=== PATIENT | male | born 1945 | race Hispanic/Latino ===

== ENCOUNTER 2018-01-14 09:21 | Emergency (ER) | payer OTHER ==
--- OUTSIDE RECORDS SUMMARY | 2018-01-14 09:24 | XMS REPORT ---
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 62858902686 5 MG Orally Once Active 1 tablet a day Vimovo [facility] 93844450867 500-20 MG Orally Active 1 tablet Twice a day before meals Cozaar [facility] 14169820099 100 MG Orally Active 1 tablet Once a day Results No Known Results Summary Purpose eClinicalWorks Submission
[2018-01-14 10:55] LABS: Absolute Lymphocytes (CBC) 1.3 K/uL (0.7-4.9); Absolute Monocytes 0.9 K/uL (0.1-1.3); Absolute Neutrophil 4.2 K/uL (1.8-8.0); Basophils % 0.5 % (0-1.3); Eosinophils % 1.4 % (0-4.4); Hematocrit 38.6 % (39.6-49.0); Lymphocytes % 19.6 % (15.3-44.8); MCH 32.7 pg (27.0-35.0); MCV 92.7 fL (80-100); MPV 8.6 fL (7.6-11.3); Monocytes % 13.7 % (3.3-12.3); RBC Red Blood Cell Count 4.16 M/uL (4.33-5.43)
[2018-01-14 11:00] LABS: Protime INR 1.12
[2018-01-14 11:17] LABS: ALT/SGPT 21 U/L (12-78); AST/SGOT 12 U/L (15-37); Albumin 3.6 g/dL (3.4-5.0); Alkaline Phosphatase 94 U/L (45-117); BUN Blood Urea Nitrogen 11 mg/dL (7-18); Bicarbonate 29 mmol/L (21-32); Bilirubin Direct 0.1 mg/dL (0-0.2); Bilirubin Total 0.5 mg/dL (0.2-1.0); CKMB Creatine Kinase MB < 1.0 ng/mL (0.3-3.6); Creatine Phosphokinase 101 U/L (39-308); Glucose Level 120 mg/dL (74-106); Magnesium 2.5 mg/dL (1.8-2.4); NT PRO-BNP 142 pg/mL (<125); Potassium 3.4 mmol/L (3.5-5.1); Protein, Total 7.9 g/dL (6.4-8.2); Sodium Level 140 mmol/L (136-145)
[2018-01-14 11:23] LABS: Urine Appearance CLEAR; Urine Bilirubin NEGATIVE (NEG); Urine Blood NEGATIVE (NEG); Urine Color YELLOW; Urine Glucose NEGATIVE (NEG); Urine Protein NEGATIVE (NEG); Urine Specific Gravity 1.015 (1.005-1.030); Urine Urobilinogen 0.2 mg/dL (0.2-1.0); Urine pH 6.5 (5.0-7.0)
[2018-01-14 11:30] LABS: Urine Microscopic Reflex NO UMIC
[2018-01-14 12:15] LABS: Urine Blood TRACE (NEG); Urine Glucose NEGATIVE (NEG); Urine Protein NEGATIVE (NEG); Urine Specific Gravity 1.015 (1.005-1.030)
--- NOTE | 2018-01-14 12:53 | RAD REPORT ---
EXAM DESCRIPTION: Gabriel Single View01/14/2018 11:03 am CLINICAL HISTORY: fever COMPARISON: none FINDINGS: A 6 centimeter consolidation is present within the right upper lobe. The left lung appears clear. The heart is normal size IMPRESSION: Right lung consolidation consistent with pneumonia. This should be followed until it is clear to help exclude a post obstructive process/underlying mass
[2018-01-14] MEDS ORDERED: AZITHROMYCIN 250 MG TAB ONE (13:24)
[2018-01-14] MEDS ORDERED: CEFTRIAXONE/SWI 1gm 1 GM/10 ML SYR ONE (13:25)
--- NOTE | 2018-01-14 13:46 | EDPHYS ---
Physician Documentation [facility] Name: Navi Mcdonald Age: 72 yrs Sex: Male : 1945 Arrival Date: 01/14/2018 Time: 09:24 Bed 13 Private MD: [facility] ED Physician Kishor Stevenson HPI: 01/14 10:16 This 72 yrs old Male presents to ER via Ambulatory with complaints of Blood jmm Pressure Problem, Headache, Chills. 10:16 The patient complains of pain to the forehead, right muslim and left muslim. The jmm patient describes the headache as aching. Onset: The symptoms/episode began/occurred gradually, 2 day(s) ago. Associated signs and symptoms: Pertinent positives: malaise, Pertinent negatives: altered mental status, dizziness, neck stiffness, paresthesias, rash, sinus congestion, sinus tenderness, vision changes, vision loss, weakness, vertigo. This is a 72 year old male with a history of HTN that presents to the ED with a frontal headache, chills beginning approx 2 days ago. Patient denies sinus congestion, shortness of breath, cough, chest pain, abdominal pain, diarrhea, vomiting, and dysuria. . Historical: - Allergies: 09:35 No Known Allergies; ss - PMHx: 09:35 PUD; Hypertension; ss - PSHx: 09:35 L ankle surgery; ss - Immunization history:: Adult Immunizations up to date. - Social history:: Smoking status: Patient/guardian denies using tobacco. - Ebola Screening: : Patient denies exposure to infectious person Patient denies travel to an Ebola-affected area in the 21 days before illness onset. ROS: 10:16 Eyes: Negative for injury, pain, redness, and discharge, Cardiovascular: Negative for jmm chest pain, palpitations, and edema, Respiratory: Negative for shortness of breath, cough, wheezing, and pleuritic chest pain, Abdomen/GI: Negative for abdominal pain, nausea, vomiting, diarrhea, and constipation, Back: Negative for injury and pain, Skin: Negative for injury, rash, and discoloration. 10:16 Constitutional: Positive for body aches, chills, malaise. 10:16 Neuro: Positive for headache. 10:16 All other systems are negative. Exam: 10:16 Constitutional: This is a well developed, well nourished patient who is awake, alert, jmm and in no acute distress. Head/Face: atraumatic. Eyes: EOMI, no conjunctival erythema appreciated ENT: Moist Mucus Membranes Neck: Trachea midline, Supple 10:16 Cardiovascular: Regular rate and rhythm. No edema appreciated Respiratory: Normal respirations, no respiratory distress appreciated Abdomen/GI: Non distended, soft 10:16 Skin: General appearance color normal MS/ Extremity: Moves all extremities, no obvious deformities appreciated, no edema noted to the lower extremities 10:16 Neck: ROM/movement: is normal, is supple. 10:16 Cardiovascular: Rate: normal, Rhythm: regular, Pulses: no pulse deficits are appreciated. 10:16 Respiratory: the patient does not display signs of respiratory distress, Respirations: normal, Breath sounds: are clear throughout. 10:16 Abdomen/GI: Inspection: abdomen appears normal, Bowel sounds: normal, Palpation: abdomen is soft and non-tender. 10:16 Skin: no petechiae appreciated. 10:16 Neuro: Orientation: is normal, Mentation: is normal, Memory: is normal, Motor: is normal, Gait: is steady. 10:16 Psych: Behavior/mood is pleasant, cooperative. Vital Signs: 09:35 BP 175 / 80; Pulse 76; Resp 16; Temp 98.4(TE); Pulse Ox 96% on R/A; Weight 67.13 kg; ss Height 5 ft. 8 in. (172.72 cm); Pain 5/10; 10:30 BP 172 / 78; Pulse 65; Resp 19; Pulse Ox 97% on R/A; dh3 11:31 BP 164 / 82; Pulse 64; Resp 22; Pulse Ox 98% on R/A; dh3 12:30 BP 171 / 78; Pulse 63; Resp 18; Pulse Ox 100% on R/A; rb1 13:15 BP 163 / 80; Pulse 67; Resp 23; Pulse Ox 98% on R/A; rb1 14:05 BP 165 / 81; Pulse 63; Resp 18; Pulse Ox 100% on R/A; rb1 09:35 Body Mass Index 22.50 (67.13 kg, 172.72 cm) ss MDM: 10:11 Patient medically screened. david 13:44 Data reviewed: vital signs, nurses notes, lab test result(s), EKG, radiologic studies, [facility] plain films. Counseling: I had a detailed discussion with the patient and/or guardian regarding: the historical points, exam findings, and any diagnostic results supporting the discharge/admit diagnosis, radiology results, the need for outpatient follow up, to return to the emergency department if symptoms worsen or persist or if there are any questions or concerns that arise at home. 13:44 ED course: Patient is alert and non toxic in appearance in the ED. Patient is not jm hypoxic. Labs are unremarkable. I discussed the chest x ray findings with the patient concerning for pneumonia. Patient was given IV abx. I also discussed the possibility of mass. Patient will follow up with his PCP tomorrow for reevaluation. Patient and family given strict return precautions. The patient understood and agrees with the plan of care. . 01/14 10:14 Order name: Basic Metabolic Panel; Complete Time: 11:47 [facility] 01/14 10:14 Order name: CBC with Diff; Complete Time: 10:58 [facility] 01/14 10:14 Order name: Ckmb; Complete Time: 11:47 [facility] 01/14 10:14 Order name: CPK; Complete Time: 11:47 [facility] 01/14 10:14 Order name: LFT's; Complete Time: 11:47 [facility] 01/14 10:14 Order name: Magnesium; Complete Time: 11:47 [facility] 01/14 10:14 Order name: NT PRO-BNP; Complete Time: 11:47 [facility] 01/14 10:14 Order name: PT-INR; Complete Time: 11:47 [facility] 01/14 10:14 Order name: Ptt, Activated; Complete Time: 11:47 [facility] 01/14 10:14 Order name: Troponin (emerg Dept Use Only); Complete Time: 11:47 [facility] 01/14 10:14 Order name: Blood Culture Adult (2) [facility] 01/14 10:14 Order name: Procalcitonin; Complete Time: 11:47 [facility] 01/14 10:14 Order name: Urinalysis; Complete Time: 11:47 [facility] 01/14 11:37 Order name: Urine Dipstick--Ancillary (enter results); Complete Time: 12:16 01/14 10:14 Order name: XRAY Chest (1 view); Complete Time: 12:53 [facility] 01/14 10:14 Order name: EKG; Complete Time: 10:15 [facility] 01/14 10:14 Order name: Cardiac monitoring; Complete Time: 11:16 [facility] 01/14 10:14 Order name: EKG - Nurse/Tech; Complete Time: 11:30 [facility] 01/14 10:14 Order name: IV Saline Lock; Complete Time: 10:49 [facility] 01/14 10:14 Order name: Labs collected and sent; Complete Time: 10:49 [facility] 01/14 10:14 Order name: O2 Per Protocol; Complete Time: 11:16 [facility] 01/14 10:14 Order name: O2 Sat Monitoring; Complete Time: 11:16 [facility] 01/14 10:14 Order name: Urine Dipstick-Ancillary (obtain specimen); Complete Time: 11:16 [facility] Administered Medications: 13:23 Drug: Rocephin - (cefTRIAXone) 1 grams Route: IVPB; Infused Over: 30 mins; Site: right rb1 antecubital; 13:40 Follow up: Response: No adverse reaction; IV Status: Completed infusion rb1 13:23 Drug: AZITHromycin 500 mg Route: PO; rb1 13:50 Follow up: Response: No adverse reaction rb1 Disposition: 01/14/18 13:45 Discharged to Home. Impression: Pneumonia. - Condition is Stable. - Discharge Instructions: Pneumonia, Adult. - Prescriptions for Zithromax Z- Nura 250 mg Oral Tablet - take 1 tablet by ORAL route as directed for 5 days Day 1 - take two (2) tablets one time. Day 2, 3, 4 , 5 take one (1) tablet once daily.; 6 tablet. - Medication Reconciliation Form, Thank You Letter, Antibiotic Education, Prescription Opioid Use form. - Follow up: Garcia Damon, ; When: Tomorrow; Reason: Continuance of care. Addendum: 01/15/2018 21:28 Co-signature as Attending Physician, Kishor Stevenson MD. m a2 Signatures: Dispatcher [employer] Akbar Townsend PA PA Mando Pan, MOLD PRESSER MOLD PRESSER Carli Maya, RN RN ss Katharine Macedo RN RN rb1 Kishor Stevenson MD MD ma2 Corrections: (The following items were deleted from the chart) 01/14 14:05 13:45 01/14/2018 13:45 Discharged to Home. Impression: Pneumonia. Condition is Stable. em Forms are Medication Reconciliation Form, Thank You Letter, Antibiotic Education, Prescription Opioid Use. Follow up: Garcia Damon; When: Tomorrow; Reason: Continuance of care. david
--- NOTE | 2018-01-14 13:46 | ER ---
Nurse's Notes [facility] Name: Navi Mcdonald Age: 72 yrs Sex: Male : 1945 Arrival Date: 01/14/2018 Time: 09:24 Bed 13 Private MD: Garcia Damon Diagnosis: Pneumonia Presentation: 01/14 09:35 Presenting complaint: Patient states: general feeling of not feeling well with chills ss and mild headache x 2 days. Unknown fever. Transition of care: patient was not received from another setting of care. Onset of symptoms was January 12, 2018. Risk Assessment: Do you want to hurt yourself or someone else? Patient reports no desire to harm self or others. Initial Sepsis Screen: Does the patient meet any 2 criteria? No. Patient's initial sepsis screen is negative. Does the patient have a suspected source of infection? No. Patient's initial sepsis screen is negative. Care prior to arrival: None. 09:35 Method Of Arrival: Ambulatory ss 09:35 Acuity: SYD[place] 3 ss Triage Assessment: 09:39 Pain: Pain began 2-3 days ago. Also complains of no other associated symptoms. rb1 09:39 Headache History: Denies prior headaches. rb1 Historical: - Allergies: 09:35 No Known Allergies; ss - PMHx: 09:35 PUD; Hypertension; ss - PSHx: 09:35 L ankle surgery; ss - Immunization history:: Adult Immunizations up to date. - Social history:: Smoking status: Patient/guardian denies using tobacco. - Ebola Screening: : Patient denies exposure to infectious person Patient denies travel to an Ebola-affected area in the 21 days before illness onset. Screenin:39 Abuse screen: Denies threats or abuse. Nutritional screening: No deficits noted. rb1 Tuberculosis screening: No symptoms or risk factors identified. Fall Risk None identified. Assessment: 09:39 General: Appears in no apparent distress. comfortable, Behavior is calm, cooperative, rb1 Reports chills for 2-3 days, Denies fever. Pain: Complains of pain in bilateral temples Pain currently is 5 out of 10 on a pain scale. Neuro: Level of Consciousness is awake, alert, obeys commands, Oriented to person, place, time, situation. Cardiovascular: Capillary refill < 3 seconds is brisk in bilateral fingers. Respiratory: Airway is patent Respiratory effort is even, unlabored, Respiratory pattern is regular, symmetrical. GI: No signs and/or symptoms were reported involving the gastrointestinal system. : No signs and/or symptoms were reported regarding the genitourinary system. Derm: Skin is pink, warm \T\ dry. 10:38 Reassessment: Patient appears in no apparent distress at this time. No changes from rb1 previously documented assessment. at bedside. 11:36 Reassessment: Patient appears in no apparent distress at this time. Patient and/or rb1 family updated on plan of care and expected duration. Pain level reassessed. Patient is alert, oriented x 3, equal unlabored respirations, skin warm/dry/pink. 12:30 Reassessment: Patient appears in no apparent distress at this time. No changes from rb1 previously documented assessment. 13:30 Reassessment: Patient appears in no apparent distress at this time. Patient and/or rb1 family updated on plan of care and expected duration. Pain level reassessed. Patient is alert, oriented x 3, equal unlabored respirations, skin warm/dry/pink. Vital Signs: 09:35 BP 175 / 80; Pulse 76; Resp 16; Temp 98.4(TE); Pulse Ox 96% on R/A; Weight 67.13 kg; ss Height 5 ft. 8 in. (172.72 cm); Pain 5/10; 10:30 BP 172 / 78; Pulse 65; Resp 19; Pulse Ox 97% on R/A; dh3 11:31 BP 164 / 82; Pulse 64; Resp 22; Pulse Ox 98% on R/A; dh3 12:30 BP 171 / 78; Pulse 63; Resp 18; Pulse Ox 100% on R/A; rb1 13:15 BP 163 / 80; Pulse 67; Resp 23; Pulse Ox 98% on R/A; rb1 14:05 BP 165 / 81; Pulse 63; Resp 18; Pulse Ox 100% on R/A; rb1 09:35 Body Mass Index 22.50 (67.13 kg, 172.72 cm) ED Course: 09:24 Patient arrived in ED. sb2 09:26 Garcia Damon DO is Private Physician. sb2 09:33 Katharine Macedo, RN is Primary Nurse. rb1 09:35 Arm band placed on left wrist. ss 09:37 Triage completed. ss 09:39 Patient has correct armband on for positive identification. Bed in low position. Call rb1 light in reach. Side rails up X 1. Pulse ox on. NIBP on. 09:53 Akbar Hopkins PA is PHCP. [facility] 09:53 Kishor Stevenson MD is Attending Physician. [facility] 10:42 Initial lab(s) drawn, by nc, sent to lab. First set of blood cultures drawn by me. 3 Inserted saline lock: 20 gauge in right antecubital area, using aseptic technique. Blood collected. 11:04 XRAY Chest (1 view) In Process Unspecified. EDMS 11:10 Second set of blood cultures drawn by ED staff, by venipuncture 23G to left ac. 3 11:15 Urine collected: clean catch specimen, savi colored. 3 11:30 EKG done, by ED staff, reviewed by Akbar EHRRERA. 3 13:45 Garcia Damon DO is Referral Physician. [facility] 14:05 No provider procedures requiring assistance completed. IV discontinued, intact, em bleeding controlled, No redness/swelling at site. Pressure dressing applied. Administered Medications: 13:23 Drug: Rocephin - (cefTRIAXone) 1 grams Route: IVPB; Infused Over: 30 mins; Site: right rb1 antecubital; 13:40 Follow up: Response: No adverse reaction; IV Status: Completed infusion rb1 13:23 Drug: AZITHromycin 500 mg Route: PO; rb1 13:50 Follow up: Response: No adverse reaction rb1 Outcome: 13:45 Discharge ordered by MD. [facility] 14:05 Discharged to home ambulatory. em 14:05 Condition: good 14:05 Discharge instructions given to patient, family, Instructed on discharge instructions, follow up and referral plans. medication usage, Demonstrated understanding of instructions, follow-up care, medications, Prescriptions given X 1. 14:05 Patient left the ED. em Signatures: Dispatcher [employer] EDTN Akbar Hopkins PA PA [facility] Mando Mcgraw, MANAGEMENT AND BUDGET ANALYST MANAGEMENT AND BUDGET ANALYST em Carli Maldonado, RN RN Katharine Macedo, RN RN rb1 Ayaka Ansari 3 Deborah Driver2
--- NOTE | 2018-01-15 06:50 | EKG ---
Test Date: 2018-01-14 Test Time: 11:25:11 [employer] Supervisor: BHARTI MEASUREMENT RESULTS: Intervals: Rate: 67 [place]: 136 QRSD: 74 QT: 364 QTc: 384 [place]: P: 47 [place]: 136 QRS: 26 T: 46 INTERPRETIVE STATEMENTS: Normal sinus rhythm Normal ECG No previous ECG available for comparison Electronically Signed On 01-15-18 06:49:46 CDT by Karlo Morillo
== END 2018-01-14 14:05 | disposition home or self-care (01) ==
LOC: ER 09:21
DX: J18.9 Pneumonia, unspecified organism (principal); I10 Essential (primary) hypertension
CPT/HCPCS: 36415; 71045; 80048; 80076; 81003 ×2; 82550; 82553; 83735; 83880; 84145; 84484; 85025; 85610; 85730; 87040 ×2; 93005; 96365; 99284; J0696